=== PATIENT | male | born 1985 | race Caucasian/White ===

== ENCOUNTER 2023-07-11 18:50 | Inpatient (IN) | payer OTHER ==
[2023-07-11 19:23] VITALS: BMI 25.1
[2023-07-11] MEDS ORDERED: MAG HYDROX/AL HYDROX/SIMETH 30 ML UNIT-DOSE CUP PO PRN (20:20)
[2023-07-11] MEDS ORDERED: MAGNESIUM HYDROX 2400MG/30ML ORAL SUSPENSION 30 ML CUP PO PRN (20:20)
[2023-07-11] MEDS ORDERED: POLYETHYLENE GLYCOL (HEALTHYLAX) 3350 17 GM PACKET PO PRN (20:20)
[2023-07-11] MEDS ORDERED: IBUPROFEN 600 MG TABLET (FP) PO PRN (20:20)
[2023-07-11] MEDS ORDERED: ACETAMINOPHEN 325 MG TABLET (FP) PO PRN (20:20)
[2023-07-11] MEDS ORDERED: BENZOCAINE/MENTHOL (CHLORASEPTIC ) LOZENGE MM PRN (20:20)
[2023-07-11] MEDS ORDERED: guaiFENesin 600 MG TABLET.ER (FP) PO PRN (20:20)
[2023-07-11] MEDS ORDERED: BENZONATATE 200 MG CAPSULE PO PRN (20:20)
[2023-07-11] MEDS ORDERED: BISMUTH SUBSALICYLATE 524 MG/30 ML PO PRN (20:20)
[2023-07-11] MEDS ORDERED: ONDANSETRON *ODT* 4 MG TABLET SL PRN (20:20)
[2023-07-11] MEDS ORDERED: IBUPROFEN 400 MG TABLET (FP) PO PRN (20:20)
[2023-07-11] MEDS ORDERED: DICYCLOMINE HCL 10 MG CAPSULE PO PRN (20:20)
[2023-07-11] MEDS ORDERED: LOPERAMIDE HCL 2 MG CAPSULE PO PRN (20:20)
[2023-07-11] MEDS ORDERED: NICOTINE POLACRILEX 2 MG LOZENGE BC PRN (20:25)
[2023-07-11] MEDS ORDERED: NICOTINE POLACRILEX 2 MG GUM BUC PRN (20:25)
[2023-07-11] MEDS: MELATONIN 5 MG TABLETS PO SCH (22:19)
[2023-07-11] MEDS: chlordiazePOXIDE HCL 25 MG CAPSULE PO SCH (22:19)
[2023-07-11] MEDS: hydrOXYzine PAMOATE 25 MG CAPSULE (FP) PO PRN (22:19)
[2023-07-11] MEDS: THIAMINE 100 MG TABLET PO SCH (22:19)
[2023-07-11] MEDS: propRANOLol HCL 10 MG TABLET PO ONE (22:43)
[2023-07-12] MEDS: PRENATAL VITAMINS W/ FOLIC ACID TABLET (FP) PO SCH (10:14)
[2023-07-12] MEDS: METHOCARBAMOL 500 MG TABLET PO PRN (10:15)
[2023-07-12 11:35] LABS: CALCIUM 8.6 mg/dL (8.5-10.1)
[2023-07-12 11:36] LABS: ALBUMIN 3.3 g/dl (3.4-5.0); BLOOD UREA NITROGEN 10.4 mg/dL (7-18)
[2023-07-12 11:39] LABS: CREATININE 0.8 mg/dL (0.55-1.3)
[2023-07-12 11:40] LABS: BILIRUBIN,TOTAL 0.3 mg/dL (0.2-1)
[2023-07-12 11:41] LABS: TOT PROT 7.1 g/dl (6.4-8.2)
[2023-07-12 11:45] LABS: HEMATOCRIT 37.6 % (35.4-49); MCH 32.5 pg (25.7-33.7); MCHC 34.7 g/dl (32.0-35.9); MEAN CELL VOLUME 93.8 fl (80-96); MEAN PLT VOLUME 7.2 fl (7.5-11.1); PLATELET COUNT 280 10^3/uL (134-434); RBC 4.01 M/mm3 (4.00-5.60); RDW 13.5 % (11.9-15.9); WHITE BLOOD COUNT 6.1 K/mm3 (4.0-10.0)
[2023-07-12] MEDS: FENOFIBRIC ACID 135 MG CAP PO SCH (12:20)
[2023-07-12] MEDS: chlordiazePOXIDE HCL 25 MG CAPSULE PO PRN (20:27)
[2023-07-13] MEDS: chlordiazePOXIDE HCL 25 MG CAPSULE PO SCH (05:49)
[2023-07-13] MEDS: VALSARTAN 80 MG TABLET PO SCH (10:25)
[2023-07-13] MEDS: PARoxetine HCL 10 MG TABLET PO SCH (10:25)
[2023-07-14] MEDS ORDERED: chlordiazePOXIDE HCL 10 MG CAPSULE PO PRN
[2023-07-14] MEDS: chlordiazePOXIDE HCL 10 MG CAPSULE PO SCH (05:46)
[2023-07-14 16:55] VITALS: RESP 18
[2023-07-15] MEDS: chlordiazePOXIDE HCL 10 MG CAPSULE PO SCH (06:00)
[2023-07-15 06:22] VITALS: BP 119/71; PULSE 88; TEMP 97.6
[2023-07-16] MEDS ORDERED: chlordiazePOXIDE HCL 10 MG CAPSULE PO ONE (05:00)
== END 2023-07-15 09:37 | disposition home or self-care (01) | DRG 775 ==
LOC: YASAS 18:50 → Y3N 21:42
PROVIDERS: ADMIT Allergy & Immunology; ATTEND Surgery
PROC: HZ2ZZZZ Detoxification Services for Substance Abuse Treatment (ICD-10-PCS; principal; 2023-07-11)
DX: F10.230 Alcohol dependence with withdrawal, uncomplicated (principal); F17.210 Nicotine dependence, cigarettes, uncomplicated; F42.9 Obsessive-compulsive disorder, unspecified; F41.9 Anxiety disorder, unspecified; F32.A Depression, unspecified; I10 Essential (primary) hypertension; E78.5 Hyperlipidemia, unspecified; Z56.0 Unemployment, unspecified; Z59.00 Homelessness unspecified
CPT/HCPCS: 36415; 80053; 80305; 85027; 86780; 93005; 93010

== ENCOUNTER 2024-10-23 13:16 | Inpatient (IN) | payer OTHER ==
[2024-10-23 13:58] VITALS: BMI 25.8
[2024-10-23] MEDS ORDERED: ONDANSETRON *ODT* 4 MG TABLET SL PRN (14:37)
[2024-10-23] MEDS ORDERED: BISMUTH SUBSALICYLATE 524 MG/30 ML PO PRN (14:37)
[2024-10-23] MEDS ORDERED: MAGNESIUM HYDROX 2400MG/30ML ORAL SUSPENSION 30 ML CUP PO PRN (14:37)
[2024-10-23] MEDS ORDERED: IBUPROFEN 600 MG TABLET (FP) PO PRN (14:37)
[2024-10-23] MEDS ORDERED: guaiFENesin 600 MG TABLET.ER (FP) PO PRN (14:37)
[2024-10-23] MEDS ORDERED: NICOTINE POLACRILEX 2 MG GUM BUC PRN (14:37)
[2024-10-23] MEDS ORDERED: NALOXONE (NARCAN) HCL 4 MG/0.1 ML SPRAY NS PRN (14:37)
[2024-10-23] MEDS ORDERED: BENZOCAINE/MENTHOL (CHLORASEPTIC ) LOZENGE MM PRN (14:37)
[2024-10-23] MEDS ORDERED: MAG HYDROX/AL HYDROX/SIMETH 30 ML UNIT-DOSE CUP PO PRN (14:37)
[2024-10-23] MEDS ORDERED: IBUPROFEN 400 MG TABLET (FP) PO PRN (14:37)
[2024-10-23] MEDS ORDERED: LOPERAMIDE HCL 2 MG CAPSULE PO PRN (14:37)
[2024-10-23] MEDS ORDERED: POLYETHYLENE GLYCOL (HEALTHYLAX) 3350 17 GM PACKET PO PRN (14:37)
[2024-10-23] MEDS ORDERED: DICYCLOMINE HCL 10 MG CAPSULE PO PRN (14:37)
[2024-10-23] MEDS ORDERED: ACETAMINOPHEN 325 MG TABLET (FP) PO PRN (14:37)
[2024-10-23] MEDS ORDERED: BENZONATATE 200 MG CAPSULE PO PRN (14:37)
[2024-10-23] MEDS: NALTREXONE HCL 50 MG TABLET PO SCH (21:27)
[2024-10-23] MEDS: MELATONIN 5 MG TABLETS PO SCH (22:35)
[2024-10-23] MEDS: THIAMINE 100 MG TABLET PO SCH (22:35)
[2024-10-24] MEDS: NALTREXONE HCL 50 MG TABLET PO SCH (10:16)
[2024-10-24] MEDS: PRENATAL VITAMINS W/ FOLIC ACID TABLET (FP) PO SCH (10:16)
[2024-10-24] MEDS: NICOTINE 21 MG/24 HOURS TOPICAL PATCH TD SCH (10:17)
[2024-10-24 10:31] LABS: MCHC 33.0 g/dl (32.3-36.5); MEAN CELL VOLUME 90.4 fl (79.0-92.2); MEAN PLT VOLUME 9.6 fl (9.4-12.4); RDW 13.2 % (12.0-15.6)
[2024-10-24 11:05] LABS: GLUCOSE,RANDOM 104 mg/dL (74-106); TOT PROT 7.0 g/dl (6.4-8.2)
[2024-10-24 11:06] LABS: CO2 27 mmol/L (21-32)
[2024-10-24 11:08] LABS: ALK PHOS 72 U/L (40-150)
[2024-10-24 11:11] LABS: CREATININE 0.82 mg/dL (0.55-1.3); SGOT/AST 63 U/L (5-34); SGPT/ALT 29 U/L (0-55)
[2024-10-24] MEDS: hydrOXYzine PAMOATE 25 MG CAPSULE (FP) PO PRN (22:45)
[2024-10-24] MEDS: METHOCARBAMOL 500 MG TABLET PO PRN (22:45)
[2024-10-26 09:29] VITALS: BP 112/67; PULSE 62; RESP 14; TEMP 97.5
== END 2024-10-26 11:26 | disposition home or self-care (01) | DRG 775 ==
LOC: YASAS 13:16 → Y3N 19:23
PROVIDERS: ADMIT Neuromusculoskeletal Medicine & OMM; ATTEND Allergy & Immunology
PROC: HZ2ZZZZ Detoxification Services for Substance Abuse Treatment (ICD-10-PCS; principal; 2024-10-23)
DX: F10.230 Alcohol dependence with withdrawal, uncomplicated (principal); F17.210 Nicotine dependence, cigarettes, uncomplicated; F32.A Depression, unspecified; E78.5 Hyperlipidemia, unspecified; I10 Essential (primary) hypertension; L40.9 Psoriasis, unspecified
CPT/HCPCS: 36415; 80053; 80307; 85027; 86780; 93005; 93010